=== PATIENT | female | born 1990 | race Caucasian/White ===

== ENCOUNTER → 2017-01-29 | Day surgery (SDC) | payer OTHER ==
[~2017-01-29] MED LIST: ACET250T3 PO; FIORIC PO; FURO20 PO; LACTATED RINGER'S 1000 ML INJ 1,000 ML ONE; PROPOFOL 200 MG/20 ML AMP IV ONE; ZOFR8TAB PO
--- NOTE | 2017-01-29 11:42 | GIPROC ---
[facility] [address] [facility], [id number] EGD PROCEDURE REPORT EXAM DATE: 01/29/2017 PATIENT NAME: Brendon Teran MR #: [id number] BIRTHDATE: 1990 ATTENDING: Breann Bay MD ORDER #: [id number] AUTOMOTIVE GENERATOR REPAIRER: Mary Conteh CST and Emily Santiago RN STATUS: outpatient INDICATIONS: The patient is a 26 yr old female here for an EGD due to abdominal pain ruq, diarrhea PROCEDURE PERFORMED: EGD w/ biopsy MEDICATIONS: None and Per Anesthesia. TOPICAL ANESTHETIC: none CONSENT: The patient understands the risks and benefits of the procedure and understands that these risks include, but are not limited to: sedation, allergic reaction, infection, perforation and/or bleeding. Alternative means of evaluation and treatment include, among others: physical exam, x-rays, and/or surgical intervention. The patient elects to proceed with this endoscopic procedure. medical equipment was checked for proper function. Hand hygiene and appropriate measures for infection prevention was taken. After the risks, benefits and alternatives of the procedure were thoroughly explained, Informed consent was verified, confirmed and timeout was successfully executed by the treatment team. The patient was anesthetized with topical anesthesia and the EC-3890Li ([id number]) endoscope was introduced through the mouth and advanced to the second portion of the duodenum. Retroflexed views revealed a hiatal hernia The gastroscope was then slowly withdrawn and removed. Gastritis antrum-biopsy duodenum normal-biopsy. Irregular z line. ADVERSE EVENTS: There were no complications. IMPRESSIONS: 1. Gastritis antrum-biopsy duodenum normal-biopsy 2. Irregular z line 3. Retroflexed views revealed a hiatal hernia RECOMMENDATIONS: 1. Await biopsy results. Biopsy results will not be ready for 7-10 days. If you don't hear from us in two weeks, call our office for biopsy results. 2. Anti-reflux regimen 3. Avoid NSAIDS 4. Trial of bentyl 1 mg po bid prn for pain PATIENT CONDITION: stable DISPOSITION: Home REPEAT EXAM: EGD pending biopsy results Breann Bay MD eSigned: Breann Bay MD 01/29/2017 11:41 AM cc: José Espinosa [facility] Angela Slaughter M.D. PATIENT NAME: Brendon Teran MR#: [id number]
--- NOTE | 2017-01-29 11:45 | GIPROC ---
[facility] [address] [facility], [address] COLONOSCOPY PROCEDURE REPORT EXAM DATE: 01/29/2017 PATIENT NAME: Brendon Teran MR #: [id number] BIRTHDATE: 1990 ENDOSCOPIST: Breann Bay MD ORDER #: [id number] VETERINARY MEAT INSPECTOR: Mary Conteh CST and Emily Santiago RN STATUS: outpatient INDICATIONS: The patient is a 26 yr old female here for a colonoscopy due to abdominal pain, diarrhea PROCEDURE PERFORMED: Colonoscopy with biopsy MEDICATIONS: None and Per Anesthesia. PREP QUALITY: good PREP TYPE:GoLytely ESTIMATED BLOOD LOSS: None CONSENT: The patient understands the risks and benefits of the procedure and understands that these risks include, but are not limited to: sedation, allergic reaction, infection, perforation and/or bleeding. Alternative means of evaluation and treatment include, among others: physical exam, x-rays, and/or surgical intervention. The patient elects to proceed with this endoscopic procedure. medical equipment was checked for proper function. Hand hygiene and appropriate measures for infection prevention was taken. After the risks, benefits and alternatives of the procedure were thoroughly explained, Informed consent was verified, confirmed and timeout was successfully executed by the treatment team. A digital exam revealed hemorrhoids The EC-3890Li ([id number]) endoscope was introduced through the anus and advanced to the cecum, which was identified by both the appendix and ileocecal valve. The instrument was then slowly withdrawn as the colon was fully examined. COLON FINDINGS: Small nodule in cecum-biopsy random biopsies from ascending and descending. Retroflexed views revealed internal hemorrhoids and Retroflexed views revealed small internal hemorrhoids The scope was then completely withdrawn from the patient and the procedure terminated. PROCEDURE WITHDRAWAL TIME:6minutes ADVERSE EVENTS: There were no complications. IMPRESSIONS: 1. Small nodule in cecum-biopsy random biopsies from ascending and descending 2. Retroflexed views revealed internal hemorrhoids 3. Retroflexed views revealed small internal hemorrhoids 4. Revealed hemorrhoids RECOMMENDATIONS: 1. Await biopsy results. Biopsy results will not be ready for 7-10 days. If you don't hear from us in two weeks, call our office for results. 2. Benefiber 2 tsp daily 3. Probiotics from any C or health food store RECALL: Colonoscopy, pending biopsy results Breann Bay MD eSigned: Breann Bay MD 01/29/2017 11:45 AM cc: Shelia Bone and Katerine Slaughter M.D. PATIENT NAME: Brendon Teran MR#: [id number]
== END | disposition home or self-care (01) ==
LOC: ESDC 09:23
PROVIDERS: ATTEND Internal Medicine Gastroenterology
DX: R10.9 Unspecified abdominal pain (principal); R19.7 Diarrhea, unspecified; D12.0 Benign neoplasm of cecum; K64.8 Other hemorrhoids; K44.9 Diaphragmatic hernia without obstruction or gangrene; K29.70 Gastritis, unspecified, without bleeding; K22.9 Disease of esophagus, unspecified
CPT/HCPCS: 00740; 00810; 43239; 45380; 88305; 88312; J3010; J7120

== ENCOUNTER 2017-05-23 08:00 | Emergency (ER) | payer SELFPAY ==
[~2017-05-23] VITALS: Ht 160 cm; Wt 86.0 kg
[~2017-05-23 08:00] MED LIST changes: -LACTATED RINGER'S 1000 ML INJ 1,000 ML ONE; -PROPOFOL 200 MG/20 ML AMP IV ONE
[2017-05-23 08:04] VITALS: BP 122/79; PULSE 74; RESP 20; TEMP 98.3; O2SAT 99
[2017-05-23] MEDS ORDERED: LORA-474 PO (08:12)
[2017-05-23] MEDS ORDERED: ACET250T3 PO (08:12)
[2017-05-23] MEDS ORDERED: LEVE500 PO (08:12)
[2017-05-23] MEDS ORDERED: SODIUM CHLOR 0.9% 1000 ML INJ 1,000 ML IV ONE (08:25)
[2017-05-23] MEDS ORDERED: SODIUM CHLORIDE 0.9% FLUSH 10 ML FLUSH IVF PRN (08:30)
[2017-05-23] MEDS ORDERED: levETIRAcetam 500 MG TAB PO ONE (08:30)
--- NOTE | 2017-05-23 08:31 | PD ---
HPI Chief Complaint: Syncope/Near-Syncope Time Seen by Provider: 08:21 Travel History International Travel<30 days: No Contact w/Intl Traveler<30days: No Traveled to known affect area: No History of Present Illness HPI 26 y/o female states that she's been off her Keppra for 2 weeks but took a dose last night and did not take one yet this morning. She was at work when she had a witnessed syncopal event. She did not have any urinary incontinence or specific seizure activity per bystanders. Patient states that her seizures will be both syncope like and grand mal-like. She states Dr. Pardo is her neurologist. She denies possibility of and recently had her menstrual cycle. She states she had a headache and felt lightheaded before her seizure but denies any other complaints before or after the episode. She states she doesn't recall events about the episode itself. She was very briefly out per bystanders. History is limited. PFSH Past Medical History Cardiovascular Problems: Yes (IIH) Diminished Hearing: No Musculoskeletal: Yes Neurologic: Yes Seizures: Yes Tetanus Vaccination: > 5 Years Influenza Vaccination: No ?: Not LMP: 05/12/17 : 1 Miscarriage: 1 Past Surgical History Gynecologic Surgery: Yes (LAP FOR ENDOMETRIOSIS) Other Surgery: Yes (GRANULATED TISSUE REMOVED BOTTOM LIP) Social History Alcohol Use: No Tobacco Use: No Substance Use: No Allergies-Medications (Allergen,Severity, Reaction): Coded Allergies: codeine (Unverified Allergy, Unknown, Hives, 05/23/17) Reported Meds & Prescriptions Reported Meds & Active Scripts Active Reported Ativan (Lorazepam) 1 Mg Tab 1 Mg PO DAILY PRN Acetazolamide 250 Mg Tab 500 Mg PO BID Keppra (Levetiracetam) 500 Mg Tab 500 Mg PO BID Review of Systems ROS Limitations: Poor Historian Except as stated in HPI: all other systems reviewed are Neg Physical Exam Narrative GENERAL: Well-nourished, well-developed patient. Well-appearing SKIN: Warm and dry. HEAD: Normocephalic and atraumatic. EYES: No injection or drainage. ENT: No nasal drainage noted. NECK: Supple, trachea midline. CARDIOVASCULAR: Regular rate and rhythm RESPIRATORY: Breath sounds equal bilaterally. No accessory muscle use. GASTROINTESTINAL: Abdomen soft, non-tender, nondistended. EXTREMITIES: No edema. NEUROLOGICAL: Awake and alert. Motor and sensory grossly within normal limits. Normal speech. Data Data Last Documented VS Vital Signs Date Time Temp Pulse Resp B/P (MAP) Pulse Ox O2 Delivery O2 Flow Rate FiO2 05/23/17 11:27 05/23/17 11:00 68 17 98 Room Air 05/23/17 08:04 98.3 Orders Orders Complete Blood Count With Diff (05/23/17 08:25) Basic Metabolic Panel (Bmp) (05/23/17 08:25) Electrocardiogram (05/23/17 ) Ct Brain W/O Iv Contrast(Rout) (05/23/17 ) Blood Glucose (05/23/17 08:25) Ecg Monitoring (05/23/17 08:25) Iv Access Insert/Monitor (05/23/17 08:25) Oximetry (05/23/17 08:25) Sodium Chlor 0.9% 1000 Ml Inj (Ns 1000 M (05/23/17 08:25) Sodium Chloride 0.9% Flush (Ns Flush) (05/23/17 08:30) Levetiracetam (Keppra) (05/23/17 08:30) Labs Laboratory Tests Test 05/23/17 08:40 White Blood Count 7.3 TH/MM3 Red Blood Count 4.28 MIL/MM3 Hemoglobin 13.0 GM/DL Hematocrit 38.0 % Mean Corpuscular Volume 88.7 FL Mean Corpuscular Hemoglobin 30.4 PG Mean Corpuscular Hemoglobin Concent 34.3 % Red Cell Distribution Width 12.5 % Platelet Count 220 TH/MM3 Mean Platelet Volume 8.5 FL Neutrophils (%) (Auto) 63.5 % Lymphocytes (%) (Auto) 24.5 % Monocytes (%) (Auto) 8.8 % Eosinophils (%) (Auto) 2.4 % Basophils (%) (Auto) 0.8 % Neutrophils # (Auto) 4.6 TH/MM3 Lymphocytes # (Auto) 1.8 TH/MM3 Monocytes # (Auto) 0.6 TH/MM3 Eosinophils # (Auto) 0.2 TH/MM3 Basophils # (Auto) 0.1 TH/MM3 CBC Comment DIFF FINAL Differential Comment Blood Urea Nitrogen 9 MG/DL Creatinine 0.66 MG/DL Random Glucose 90 MG/DL Calcium Level 8.6 MG/DL Sodium Level 137 MEQ/L Potassium Level 4.0 MEQ/L Chloride Level 106 MEQ/L Carbon Dioxide Level 25.3 MEQ/L Anion Gap 6 MEQ/L Estimat Glomerular Filtration Rate 108 ML/MIN MDM Medical Decision Making Medical Screen Exam Complete: Yes Emergency Medical Condition: Yes Medical Record Reviewed: Yes (past history confirmed) Interpretation(s) CBC & BMP Diagram 05/23/17 08:40 Calcium Level 8.6 Last [address] 05/23/17 0000 Signed Impressions: Service Date/Time: Tuesday, May 23, 2017 09:27 - CONCLUSION: 1. No acute intracranial abnormality. 2. Opacification of the left frontal sinus and left anterior ethmoid air cells. Ward Gupta MD Differential Diagnosis Seizure, vasovagal, dehydration, intracranial Narrative Course Will check blood work, CT brain and dose with her home Keppra and monitor patient without episode here, attempted to reach her neurologist but [place], patient happy contacting them for follow up care, has keppra at home, Patient denies any new complaints and states that they are feeling better. Patient happy with care, all questions answered. Patient knows that follow up is incumbent on them and to return to the emergency room immediately if new or worsening symptoms develop. Patient given strict return precautions, vitals reviewed and are normal, agrees to further workup as an outpatient. Diagnosis Primary Impression: Syncope Qualified Codes: R55 - Syncope and collapse Patient Instructions: General Instructions Additional Instructions: no driving until cleared with neurology, return as needed, follow with neurology this week Med/Other Pt SpecificInfo: No Change to Meds Disposition: 01 DISCHARGE HOME Condition: Stable Liyah Franklin MD May 23, 2017 08:31
[2017-05-23 08:33] VITALS: O2SAT 98
[2017-05-23 09:02] LABS: AUTOMATED NEUTROPHIL # 4.6 TH/MM3 (1.8-7.7); BASOPHIL # 0.1 TH/MM3 (0-0.2); BASOPHIL % 0.8 % (0.0-2.0); EOSINOPHIL # 0.2 TH/MM3 (0-0.4); EOSINOPHIL % 2.4 % (0.0-4.0); HEMO FLAGS DIFF FINAL; LYMPH % 24.5 % (9.0-44.0); LYMPHOCYTE # 1.8 TH/MM3 (1.0-4.8); MEAN CELL VOLUME 88.7 FL (80.0-100.0); MEAN CORPUSCULAR HEMOGLOBIN 30.4 PG (27.0-34.0); MEAN CORPUSCULAR HGB CONC 34.3 % (32.0-36.0); MONO % 8.8 % (0.0-8.0); NEUT % 63.5 % (16.0-70.0); PLATELET COUNT 220 TH/MM3 (150-450); RED BLOOD COUNT 4.28 MIL/MM3 (4.00-5.30); RED CELL DISTRIBUTION WIDTH 12.5 % (11.6-17.2); WHITE BLOOD COUNT 7.3 TH/MM3 (4.0-11.0)
[2017-05-23 09:25] LABS: BICARBONATE 25.3 MEQ/L (21.0-32.0)
--- NOTE | 2017-05-23 09:40 | RADRPT ---
EXAM DATE/TIME: 05/23/2017 09:27 [place] COMPARISON: No previous studies available for comparison. INDICATIONS : Syncopal episodes, possible seizure. RADIATION DOSE: 31.32 CTDIvol (mGy) MEDICAL HISTORY : Seizures. SURGICAL HISTORY : None. ENCOUNTER: Initial ACUITY: 1 day PAIN SCALE: 0/10 LOCATION: cranial TECHNIQUE: Multiple contiguous axial images were obtained of the head. Using automated exposure control and adj ustment of the mA and/or kV according to patient size, radiation dose was kept as low as reasonably a chievable to obtain optimal diagnostic quality images. DICOM format image data is available electro nically for review and comparison. FINDINGS: CEREBRUM: The ventricles are normal for age. No evidence of midline shift, mass lesion, hemorrhage or acute in farction. No extra-axial fluid collections are seen. POSTERIOR FOSSA: The cerebellum and brainstem are intact. The 4th ventricle is midline. The cerebellopontine angle i s unremarkable. EXTRACRANIAL: The visualized portion of the orbits is intact. There is opacification of left frontal sinus and left anterior ethmoid air cells. SKULL: The calvaria is intact. No evidence of skull fracture. CONCLUSION: 1. No acute intracranial abnormality. 2. Opacification of the left frontal sinus and left anterior ethmoid air cells. Ward Gupta MD on May 23, 2017 at 9:37 Board Certified Radiologist. This report was verified electronically.
[2017-05-23 11:00] VITALS: BP 113/54; PULSE 68; RESP 17; O2SAT 98
--- NOTE | 2017-05-23 21:10 | EKG ---
Date Performed: 05/23/2017 Time Performed: 08:05:09 PTAGE: 26 years EKG: Sinus rhythm NORMAL ECG NO PREVIOUS TRACING DOCTOR: Bertha Albarran Interpretating Date/Time 05/23/2017 21:08:28
== END 2017-05-23 11:28 | disposition home or self-care (01) ==
LOC: NEPC 08:00
DX: R55 Syncope and collapse (principal); R51 Headache
CPT/HCPCS: 70450; 80048; 85025; 93005; 96360; 96361; 99285; J7030

== ENCOUNTER 2017-09-04 15:58 | Emergency (ER) | payer SELFPAY ==
[~2017-09-04] VITALS: Ht 160 cm; Wt 85.0 kg
[~2017-09-04 15:58] MED LIST changes: -FIORIC PO; -FURO20 PO; +LEVE500 PO; +LORA-474 PO; -ZOFR8TAB PO
[2017-09-04 16:08] VITALS: BP 135/82; PULSE 70; RESP 16; TEMP 98; O2SAT 99
--- NOTE | 2017-09-04 16:55 | PD ---
HPI Chief Complaint: Seizure Time Seen by Provider: 16:17 Travel History International Travel<30 days: No Contact w/Intl Traveler<30days: No Traveled to known affect area: No History of Present Illness HPI The patient was seen and examined in the presence of the nurse. This patient complains of some vague lightheadedness. Severity is mild. She has seizure disorder and supposed to be on Keppra but quit taking it a few months ago. She is not sure if she had any seizure activity today but doesn't sound convincing neurologically. PFSH Past Medical History Cardiovascular Problems: Yes (IIH) Diminished Hearing: No Musculoskeletal: Yes Neurologic: Yes Immunizations Current: Yes Seizures: Yes Tetanus Vaccination: Unknown Influenza Vaccination: No ?: Not LMP: 08/11/17 : 1 Para: 0 Miscarriage: 1 Past Surgical History Gynecologic Surgery: Yes (LAP FOR ENDOMETRIOSIS) Other Surgery: Yes (GRANULATED TISSUE REMOVED BOTTOM LIP) Social History Alcohol Use: No Tobacco Use: No Substance Use: No Allergies-Medications (Allergen,Severity, Reaction): Coded Allergies: erythromycin base (Unverified Allergy, Mild, 09/04/17) codeine (Unverified Allergy, Unknown, Hives, 09/04/17) Reported Meds & Prescriptions Reported Meds & Active Scripts Active Reported Ativan (Lorazepam) 1 Mg Tab 1 Mg PO DAILY PRN Acetazolamide 250 Mg Tab 500 Mg PO BID Keppra (Levetiracetam) 500 Mg Tab 500 Mg PO BID Review of Systems General / Constitutional: No: Fever HENT: No: Headaches Cardiovascular: No: Chest Pain or Discomfort Physical Exam Narrative GENERAL: Well-nourished, well-developed patient in no apparent distress. SKIN: Focused skin assessment reveals no rash and nodules. Skin is Warm and dry. HEAD: Atraumatic. Normocephalic. EYES: Pupils equal and round. No scleral icterus. No injection or drainage. ENT: No nasal bleeding or discharge. Mucous membranes pink and moist. NECK: Trachea midline. No JVD. CARDIOVASCULAR: Regular rate and rhythm. No murmur appreciated. RESPIRATORY: No accessory muscle use. Clear to auscultation. Breath sounds equal bilaterally. GASTROINTESTINAL: Abdomen soft, non-tender, nondistended. Hepatic and splenic margins not palpable. MUSCULOSKELETAL: No obvious deformities. No clubbing. No cyanosis. No edema. NEUROLOGICAL: Awake and alert. No obvious cranial nerve deficits. Motor grossly within normal limits. Normal speech. PSYCHIATRIC: Appropriate mood and affect; insight and judgment normal. Data Data Last Documented VS Vital Signs Date Time Temp Pulse Resp B/P (MAP) Pulse Ox O2 Delivery O2 Flow Rate FiO2 09/04/17 16:08 98.0 70 16 135/82 (99) 99 Room Air MDM Medical Decision Making Medical Screen Exam Complete: Yes Emergency Medical Condition: Yes Medical Record Reviewed: Yes Differential Diagnosis Break through seizure, anxiety, vague constitutional symptoms Narrative Course I have reviewed the patient's electronic medical record. Patient looks clinically well. Neurologically intact. I prescribed her Keppra for one month recommend primary care follow-up and neurology follow-up Diagnosis Primary Impression: Lightheadedness Additional Impression: Generalized weakness Additional Instructions: The patient was advised to follow up with their physician and return if they worsen. Follow-up with neurology Med/Other Pt SpecificInfo: Prescription(s) given Disposition: 01 DISCHARGE HOME Condition: Stable Zhen Varela MD Sep 04, 2017 16:55
[2017-09-04] MEDS ORDERED: LEVE500 PO (16:56)
== END 2017-09-04 17:09 | disposition home or self-care (01) ==
LOC: NEPD 15:58
DX: R42 Dizziness and giddiness (principal); R53.1 Weakness; G40.909 Epilepsy, unspecified, not intractable, without status epilepticus
CPT/HCPCS: 99283